=== PATIENT | male | born 1970 | race Caucasian/White ===

== ENCOUNTER 2022-02-28 11:12 | Emergency (ER) | payer SELFPAY ==
[~2022-02-28] VITALS: Ht 182.9 cm; Wt 93.0 kg
[2022-02-28] MEDS ORDERED: FAMO-132 PO (12:32)
--- NOTE | 2022-02-28 12:38 | NUR ---
Patient discharged to home in stable condition. Written and verbal after care instructions given. Patient verbalizes understanding of instructions. Stressed follow up or return to ER for worsening s/s.
== END 2022-02-28 12:38 | disposition home or self-care (01) ==
LOC: ER 11:12
DX: R43.0 Anosmia (principal); R43.1 Parosmia
CPT/HCPCS: A4663